=== PATIENT | male | born 1965 | race Caucasian/White ===

== ENCOUNTER → 2016-08-15 | Day surgery (SDC) | payer OTHER ==
[~2016-08-15] MED LIST: IV RINGERS,LACTATED 1000ML 1,000 ML IV SCH; PROPOFOL 40 ML IV ONE
[2016-08-15 09:03] VITALS: BP 125/84
--- NOTE | 2016-08-16 14:03 | PATHOLOGY ---
PATHOLOGY REPORT * * * * * * * * FINAL DIAGNOSIS: Colon biopsy, sigmoid colon polyp: - Tubular adenoma. COMMENT: There is no high-grade dysplasia or evidence of malignancy. (SOTOM:; d/t: 08/16/16) REPORT ELECTRONICALLY SIGNED BY: Giorgio Wise M.D. DATE/TIME: 08/16/2016 14:02 * * * * * * * * GROSS PATHOLOGY: Received in formalin labeled "Izabela Rodriguez and sigmoid colon," is a 1.3 x 1.0 x 0.5 cm polypoid piece of red-rose soft tissue. The margin is inked and the tissue is sectioned perpendicular to the margin and submitted in its entirety in cassette A1. (TTL; 08/15/2016) INITIAL CPT CODE(S): A; 47600 Professional services performed by [facility] [place] [address] Technical services performed by [facility] at [address] [place] [address], [place] [address]. SPECIMEN(S) RECEIVED: A.Sigmoid colon polyp CLINICAL HISTORY: [facility] PATIENT: IZABELA RODRIGUEZ /AGE: 1002/27/1965 (Age: 51) PATIENT #: [id number] ALT CASE #: SPECIMEN COLLECTION DATE: 08/15/2016 SPECIMEN RECEIVED DATE: 08/15/2016 [facility] - [address] [place] [address] - PHONE: [phone] * * * END OF REPORT * * *
== END | disposition home or self-care (01) ==
LOC: ENDOS 07:08
PROVIDERS: ATTEND Internal Medicine Gastroenterology
DX: Z12.11 Encounter for screening for malignant neoplasm of colon (principal); K64.0 First degree hemorrhoids; D12.5 Benign neoplasm of sigmoid colon; Z98.42 Cataract extraction status, left eye; Z72.89 Other problems related to lifestyle
CPT/HCPCS: 45385; J2704